=== PATIENT | male | born 1945 | race Caucasian/White ===

== ENCOUNTER 2021-01-02 08:47 | Emergency (ER) | payer MEDICARE ==
[~2021-01-02] VITALS: Ht 180.3 cm; Wt 74.8 kg
[2021-01-02] MEDS ORDERED: TDAP [DIPH/PERTUSSIS/TET] 0.5 ML VIAL IM ONE ×2 (09:00→09:15)
[2021-01-02] MEDS ORDERED: LIDOCAINE 1%-EPI 1:100,000 20 ML VIAL TP ONE (09:00)
[2021-01-02] MEDS ORDERED: LIDOCAINE 1%-EPI 1:100,000 20 ML VIAL ONE (09:11)
--- NOTE | 2021-01-02 09:11 | NUR ---
THE PATIENT IS TAKEN TO CT
--- NOTE | 2021-01-02 09:40 | NUR ---
Wound cleaned and prepped for Laceration repair by EMT Vicente. Dr Pace in to suture.
[2021-01-02] MEDS ORDERED: METOPROLOL TARTRATE INJ 5 MG/5 ML AMPUL IV ONE (10:00)
[2021-01-02] MEDS ORDERED: OXYMETAZOLINE HCL NASAL SPRAY 30 ML BOTTLE NS ONE ×2 (10:03→10:30)
--- NOTE | 2021-01-02 10:24 | NUR ---
Wounds cleaned- Neosporin applied. Given Afrin nasal sray to Right nare (slight nose bleed)
[2021-01-02 10:25] VITALS: BP 125/70
--- NOTE | 2021-01-02 10:26 | NUR ---
Patient discharged to home in stable condition. Written and verbal after care instructions given. Patient verbalizes understanding of instruction. home ambulatory w/
== END 2021-01-02 10:25 | disposition home or self-care (01) ==
LOC: ER 08:54
DX: S01.81XA Laceration without foreign body of other part of head, initial encounter (principal); S80.212A Abrasion, left knee, initial encounter; R04.0 Epistaxis; G70.00 Myasthenia gravis without (acute) exacerbation; Z88.1 Allergy status to other antibiotic agents; W18.39XA Other fall on same level, initial encounter; Y93.01 Activity, walking, marching and hiking; Y92.830 Public park as the place of occurrence of the external cause; Y99.8 Other external cause status
CPT/HCPCS: 12013; 70450; 72125; 90471; 90715; 99285; J3490

== ENCOUNTER 2021-01-04 06:30 | Emergency (ER) | payer MEDICARE, OTHER ==
[~2021-01-04] VITALS: Ht 180.3 cm; Wt 74.8 kg
[2021-01-04 07:05] VITALS: BP 136/72
--- NOTE | 2021-01-04 07:33 | NUR ---
Patient discharged to home in stable condition. Written and verbal after care instructions given. Patient verbalizes understanding of instruction.
== END 2021-01-04 07:33 | disposition home or self-care (01) ==
LOC: ER 06:32
DX: S01.81XD Laceration without foreign body of other part of head, subsequent encounter (principal); F10.10 Alcohol abuse, uncomplicated; Y90.9 Presence of alcohol in blood, level not specified; Z88.1 Allergy status to other antibiotic agents; W18.39XD Other fall on same level, subsequent encounter